=== PATIENT | female | born 1980 | race Caucasian/White ===

== ENCOUNTER → 2022-09-13 11:31 | Outpatient (CLI) | payer OTHER, SELFPAY ==
[2022-09-13 12:18] LABS: Influenza A - CEPHEID Flu A NEGATIVE (NEGATIVE); Influenza B - CEPHEID Flu B NEGATIVE (NEGATIVE); Respiratory Syncytial Virus Negative (Negative)
[2022-09-13 12:42] LABS: COVID-19 CEPHEID 4-PLEX PCR Negative (Negative)
== END ==
PROVIDERS: Visit Provider Student in an Organized Health Care Education/Training Program
DX: R50.9 Fever, unspecified (principal)
CPT/HCPCS: 0241U